=== PATIENT | female | born 1945 | race Caucasian/White ===

== ENCOUNTER 2017-12-30 02:16 | Emergency (ER) | payer MEDICAID, OTHER ==
[2017-12-30] MEDS ORDERED: Famotidine In NaCl 20 mg/50 ml Premix Bag ONE (02:37)
[2017-12-30] MEDS ORDERED: Ondansetron HCl/PF 4 MG/2 ML Vial ONE (02:37)
[2017-12-30] MEDS ORDERED: cefTRIAXone\\ROCEPHIN 1 GM VIAL ONE (02:37)
[2017-12-30] MEDS ORDERED: Sodium Chloride 0.9% 1,000 ML BAG ONE (09:09)
== END 2017-12-30 04:00 | disposition home or self-care (01) ==
LOC: MADERS 02:16
DX: N39.0 Urinary tract infection, site not specified (principal); E78.5 Hyperlipidemia, unspecified; J44.9 Chronic obstructive pulmonary disease, unspecified; I10 Essential (primary) hypertension; Z87.891 Personal history of nicotine dependence; Z86.73 Personal history of transient ischemic attack (TIA), and cerebral infarction without residual deficits
CPT/HCPCS: 96365; 96375; J0696; J2405; J7050

== ENCOUNTER 2024-09-10 11:58 | Emergency (ER) | payer OTHER ==
[~2024-09-10 11:58] MED LIST: Budesonide 0.5 MG/2 ML NEB ONE; Iopamidol 370 76% 100 ML VIAL ONE; Sodium Chloride 0.9% 100 ML BAG ONE
[2024-09-10] MEDS ORDERED: Ipratropium/Albuterol 3 ML NEB ONE ×2 (12:09→14:04)
[2024-09-10] MEDS ORDERED: Albuterol 2.5 MG (3 mL) NEB ONE (12:21)
[2024-09-10] MEDS ORDERED: Budesonide 0.5 MG/2 ML NEB NEB SCH (12:30)
[2024-09-10] MEDS ORDERED: Furosemide 20 MG (2 mL) VIAL ONE (12:35)
[2024-09-10] MEDS ORDERED: Sodium Chloride 0.9% 100 ML ONE (12:36)
[2024-09-10] MEDS ORDERED: cefTRIAXone (ROCEPHIN) 2 GM VIAL ONE (12:36)
[2024-09-10] MEDS ORDERED: Azithromycin 500 MG VIAL ONE (12:36)
[2024-09-10 13:02] LABS: ALT (SGPT) 17 U/L (8-55); AST (SGOT) 20 U/L (5-34); Albumin 3.7 g/dL (3.4-4.8); Alkaline Phosphatase 75 U/L (40-110); Anion Gap 18 mmol/L (10-20); BUN (Urea Nitrogen) 15 mg/dL (9.8-20.1); Bilirubin, Total 0.5 mg/dL (0.2-1.2); Calc. Creatinine Clearance 0 mL/min (70-130); Calcium 9.1 mg/dL (7.8-10.44); Carbon Dioxide 22 mmol/L (23-31); Chloride 107 mmol/L (98-107); Estimated GFR 90; Globulin 2.9 g/dL (2.4-3.5); Glucose 137 mg/dL (83-110); Potassium 2.9 mmol/L (3.5-5.1); Protein, Total 6.6 g/dL (5.8-8.1); Sodium 144 mmol/L (136-145)
[2024-09-10 13:06] LABS: Anisocytosis SLIGHT = 6-15 cells (100X) (0-5/hpf); Band 22 % (5-11); Hematocrit 43.2 % (36.0-47.0); Hemoglobin 13.3 g/dL (12.0-16.0); Hypochromia SLIGHT = 6-15 cells (100X) (0-5/hpf); Lymphocytes 10 % (21-51); MDiff Complete? YES; Mean Corpuscular HGB CONC 30.9 g/dL (32.0-36.0); Mean Corpuscular Hemoglobin 28.3 pg (27.0-31.0); Mean Corpuscular Volume 91.6 fl (78.0-98.0); Mean Platelet Volume 10.9 fL (7.4-10.4); Monocytes 1 % (0-10); Neutrophil 67 % (42-75); Platelet Adequacy Comment Appears Decreased; Platelet Count 121 10x3/uL (130-400); RBC Distribution Width 13.7 % (11.5-14.5); Red Blood Cell (RBC) Count 4.72 mill/uL (4.20-5.40); White Blood Cell (WBC) Count 5.4 10x3/uL (4.8-10.8)
[2024-09-10 13:10] LABS: Base Excess-Venous 2.3 mmol/L (-2.0 to 3.0); Bicarbonate (HCO3v) 27.9 mmol/L (22.0-28.0); CO2 Tension (PvCO2) 45.3 mmHg (42.0-51.0); Calcium, Ionized 1.19 mmol/L (1.15-1.33); Chloride 106 mmol/L (98-107); Hemoglobin - Calc 15.4 g/dL (12.0-16.0); Potassium 2.8 mmol/L (3.5-5.1); Sodium 145 mmol/L (138-145); T. Carbon Dioxide 29.2 mmol/L (22.0-28.0); Troponin I 0.017 ng/mL (< 0.028); vO2 Saturation-calc 99.7 % (60.0-85.0)
[2024-09-10] MEDS ORDERED: NS 0.9% w/ 20 MEQ KCL 1,000 ML ONE (13:19)
[2024-09-10] MEDS ORDERED: Sodium Chloride 0.9% 250 ML 250 ML ONE (13:20)
[2024-09-10] MEDS ORDERED: Potassium Bicarbonate/Cit Ac 20 MEQ TAB ONE (13:20)
[2024-09-10 13:45] LABS: Influenza A by NAA Not Detected (NotDetected); Influenza B by NAA Not Detected (NotDetected); RSV by NAA DETECTED (NotDetected); SARS-CoV-2 NAA Rapid Test Not Detected (NotDetected)
[2024-09-10] MEDS ORDERED: Magnesium 2 GM/50 ML BAG (IN WATER) ONE (14:36)
== END 2024-09-10 17:26 | disposition short-term general hospital (02) ==
LOC: MADERS 11:58
DX: J44.1 Chronic obstructive pulmonary disease with (acute) exacerbation (principal); E87.6 Hypokalemia; J21.0 Acute bronchiolitis due to respiratory syncytial virus; D72.825 Bandemia; J81.1 Chronic pulmonary edema; R09.02 Hypoxemia; E78.5 Hyperlipidemia, unspecified; I10 Essential (primary) hypertension; F17.210 Nicotine dependence, cigarettes, uncomplicated; Z79.899 Other long term (current) drug therapy
CPT/HCPCS: 0241U; 71045; 71275; 80053; 82330; 82435; 82803; 83605; 83880; 84132; 84295; 84484; 85014; 85025; 85379; 87040; 93005; 94640 ×2; 94760; J0456; J0696; J1940; J3475; J3480; J7050; 36415; 96365; 96366; 96367; 96375; J7611; J7620; J7626; Q9967